=== PATIENT | female | born 1995 | race Caucasian/White ===

== ENCOUNTER 2017-08-30 12:50 | Emergency (ER) | payer OTHER ==
[2017-08-30] MEDS ORDERED: NORMAL SALINE 1000 ML 1,000 ML IV ONE (13:17)
[2017-08-30] MEDS ORDERED: PROMETHAZINE HCL INJ 25 MG/1 ML VIAL IV ONE (13:18)
[2017-08-30] MEDS ORDERED: KETOROLAC TROMETHAMINE INJ/PF 30 MG/1 ML SDV IV ONE (13:18)
--- NOTE | 2017-08-30 13:23 | ER Document Report ---
ED Medical Screen (RME) - General Chief Complaint: Flank Pain Stated Complaint: ABDOMINAL PAIN, VOMITING Time Seen by Provider: 08/30/17 13:17 Mode of Arrival: Ambulatory Information source: Patient TRAVEL OUTSIDE OF THE [place] IN LAST 30 DAYS: No - HPI Patient complains to provider of: R flank pain Onset: This morning - pt with history of kidney stones with R flank pain today - Related Data Allergies/Adverse Reactions: Iodinated Contrast- Oral and IV Dye Allergy (Severe, Verified 08/30/17 13:18) Anaphylaxis ondansetron HCl [From Zofran] Allergy (Intermediate, Verified 08/30/17 13:18) Past Medical History - Social History Chew tobacco use (# tins/day): No Frequency of alcohol use: None Drug Abuse: None - Past Medical History Cardiac Medical History: Denies: Hx Coronary Artery Disease, Hx Heart Attack, Hx Hypertension Pulmonary Medical History: Denies: Hx Asthma, Hx Bronchitis, Hx COPD, Hx Pneumonia Neurological Medical History: Reports: Hx Migraine. Denies: Hx Cerebrovascular Accident, Hx Seizures Endocrine Medical History: Denies: Hx Diabetes Mellitus Type 1, Hx Diabetes Mellitus Type 2 Renal/ Medical History: Reports: Hx Ovarian Cysts. Denies: Hx Peritoneal Dialysis GI Medical History: Reports: Hx Gastroesophageal Reflux Disease, Hx Irritable Bowel Musculoskeltal Medical History: Denies Hx Arthritis Past Surgical History: Reports: Hx Breast Surgery - Breast Reduction, Hx Tonsillectomy - Immunizations Immunizations up to date: Yes Hx Diphtheria, Pertussis, Tetanus Vaccination: Yes Physical Exam - Vital signs Vitals: Temp Pulse Resp BP Pulse Ox 98.4 F 79 18 120/83 97 08/30/17 13:14 08/30/17 13:14 08/30/17 13:14 08/30/17 13:14 08/30/17 13:14 Course - Vital Signs Vital signs: Temp Pulse Resp BP Pulse Ox 98.4 F 79 18 120/83 97 08/30/17 13:14 08/30/17 13:14 08/30/17 13:14 08/30/17 13:14 08/30/17 13:14 Doctor's Discharge - Discharge Referrals: DACIA RIVERA MD [Primary Care Provider] - Follow up as needed
[2017-08-30 13:53] LABS: APPEARANCE,URINE CLEAR; BILIRUBIN,URINE NEGATIVE (NEGATIVE); COLOR,URINE STRAW; GLUCOSE, URINE NEGATIVE (NEGATIVE); KETONES,URINE NEGATIVE (NEGATIVE); LEUKOCYTE ESTERASE,URINE NEGATIVE (NEGATIVE); NITRITE,URINE NEGATIVE (NEGATIVE); PROTEIN,URINE NEGATIVE (NEGATIVE); URINE SPECIFIC GRAVITY 1.006; UROBILINOGEN,URINE NEGATIVE mg/dL (<2.0)
[2017-08-30 14:11] LABS: ABSOLUTE EOSINOPHILS # (AUTO) 0.1 10^3/uL (0.0-0.6); ABSOLUTE LYMPHOCYTES (AUTO) 1.7 10^3/uL (0.5-4.7); ABSOLUTE MONOCYTES (AUTO) 1.2 10^3/uL (0.1-1.4); BASOPHILS % (AUTO) 0.3 % (0-2); EOSINOPHILS % (AUTO) 0.8 % (0-6); HEMOGLOBIN 14.8 g/dL (12.0-15.5); LYMPHOCYTES % (AUTO) 15.3 % (13-45); MEAN CORPUSCULAR HEMOGLOBIN 29.7 pg (27.0-33.4); MEAN CORPUSCULAR HGB CONC 33.6 g/dL (32.0-36.0); MEAN CORPUSCULAR VOLUME 88 fl (80-97); MONOCYTES % (AUTO) 10.6 % (3-13); PLATELET COUNT 188 10^3/uL (150-450); RED BLOOD COUNT 4.99 10^6/uL (3.72-5.28); RED CELL DISTRIBUTION WIDTH 12.7 % (11.5-14.0); TOTAL CELLS COUNTED % (AUTO) 100 %
--- NOTE | 2017-08-30 14:30 | RADIOLOGY REPORT (SQ) ---
EXAM DESCRIPTION: CT LTD RENAL STONE PROTOCOL ON COMPLETED DATE/TIME: 08/30/2017 2:18 pm REASON FOR STUDY: R flank pain COMPARISON: 05/25/2012 TECHNIQUE: CT scan of the abdomen and pelvis performed without intravenous or oral contrast. Images reviewed with lung, soft tissue, and bone windows. Reconstructed coronal and sagittal MPR images revi ewed. All images stored on PACS. All CT scanners at this facility use dose modulation, iterative reconstruction, and/or weight based d osing when appropriate to reduce radiation dose to as low as reasonably achievable (ALARA). [facility]: Dose Right [facility]: CareDose [facility]: Dose Right [facility]: Teradose 4D [facility]: Smart Smarterer RADIATION DOSE: CT Rad equipment meets quality standard of care and radiation dose reduction techniq ues were employed. CTDIvol: 11.6 mGy. DLP: 626 mGy-cm.mGy. LIMITATIONS: None. FINDINGS: LOWER CHEST: No significant findings. No nodules or infiltrates. NON-CONTRASTED LIVER, SPLEEN, ADRENALS: Evaluation limited by lack of IV contrast. No identified sign ificant masses. PANCREAS: No masses. No peripancreatic inflammatory changes. GALLBLADDER: Surgically absent. RIGHT KIDNEY AND URETER: No suspicious masses. Assessment limited by lack of IV contrast. No signif icant calcifications. No hydronephrosis or hydroureter. LEFT KIDNEY AND URETER: No suspicious masses. Assessment limited by lack of IV contrast. No signifi cant calcifications. No hydronephrosis or hydroureter. AORTA AND RETROPERITONEUM: No aneurysm. No retroperitoneal masses or adenopathy. BOWEL AND PERITONEAL CAVITY: No obvious masses or inflammatory changes. No free fluid. APPENDIX: Normal. PELVIS, BLADDER, AND ABDOMINAL WALL:No abnormal masses. No free fluid. Bladder normal. BONES: No significant findings. OTHER: No other significant finding. IMPRESSION: NO SIGNIFICANT OR ACUTE PROCESS IN THE ABDOMEN OR PELVIS. NO URINARY TRACT CALCULI OR H YDRONEPHROSIS. COMMENT: Quality ID # [id number]: Final reports with documentation of one or more dose reduction techniques (e.g., Automated exposure control, adjustment of the mA and/or kV according to patient size, use of iterative reconstruction technique) TECHNICAL DOCUMENTATION: JOB ID: [id number] [employer]- All Rights Reserved Reading location - IP/workstation name: ABA
[2017-08-30 14:36] LABS: ALANINE AMINOTRANSFERASE 47 U/L (9-52); ALKALINE PHOSPHATASE 69 U/L (38-126); ANION GAP 12 (5-19); ASPARTATE AMINO TRANSFERASE 35 U/L (14-36); BILIRUBIN,DIRECT 0.2 mg/dL (0.0-0.4); BILIRUBIN,TOTAL 0.6 mg/dL (0.2-1.3); BLOOD UREA NITROGEN 16 mg/dL (7-20); CALCIUM 10.1 mg/dL (8.4-10.2); CARBON DIOXIDE 24 mmol/L (22-30); CHLORIDE 104 mmol/L (98-107); GLUCOSE 94 mg/dL (75-110); POTASSIUM 4.7 mmol/L (3.6-5.0)
[2017-08-30] MEDS ORDERED: METOCLOPRAMIDE HCL INJ/PF 10 MG/2 ML SDV IV ONE (15:21)
[2017-08-30] MEDS ORDERED: FENTANYL CITRATE INJ/PF 100 MCG/2 ML AMPUL IV ONE (15:38)
--- NOTE | 2017-08-30 15:57 | ER Document Report ---
ED GI/ - General Chief Complaint: Flank Pain Stated Complaint: ABDOMINAL PAIN, VOMITING Time Seen by Provider: 08/30/17 13:17 Mode of Arrival: Ambulatory Information source: Patient Notes: Patient is a 22-year-old female who presents to the ER today for right flank pain radiating around to the right lower abdomen. Patient has a history of kidney stones and states that it feels like exactly the same thing. Patient admits to multiple episodes of nausea and vomiting today. She states that this pain woke her up out of sleep last night around 2 AM. Patient denies any blood in her urine, dysuria, fever, chills. Patient does still have her appendix. TRAVEL OUTSIDE OF THE [place] IN LAST 30 DAYS: No - Related Data Allergies/Adverse Reactions: Iodinated Contrast- Oral and IV Dye Allergy (Severe, Verified 08/30/17 13:18) Anaphylaxis ondansetron HCl [From Zofran] Allergy (Intermediate, Verified 08/30/17 13:18) Past Medical History - General Information source: Patient - Social History Smoking Status: Never Smoker Chew tobacco use (# tins/day): No Frequency of alcohol use: None Drug Abuse: None Family History: Reviewed & Not Pertinent Patient has suicidal ideation: No Patient has homicidal ideation: No - Past Medical History Cardiac Medical History: Denies: Hx Coronary Artery Disease, Hx Heart Attack, Hx Hypertension Pulmonary Medical History: Denies: Hx Asthma, Hx Bronchitis, Hx COPD, Hx Pneumonia Neurological Medical History: Reports: Hx Migraine. Denies: Hx Cerebrovascular Accident, Hx Seizures Endocrine Medical History: Denies: Hx Diabetes Mellitus Type 1, Hx Diabetes Mellitus Type 2 Renal/ Medical History: Reports: Hx Kidney Stones, Hx Ovarian Cysts. Denies: Hx Peritoneal Dialysis GI Medical History: Reports: Hx Gastroesophageal Reflux Disease, Hx Irritable Bowel Musculoskeltal Medical History: Denies Hx Arthritis Past Surgical History: Reports: Hx Breast Surgery - Breast Reduction, Hx Cholecystectomy, Hx Genitourinary Surgery - kidney stones, Hx Tonsillectomy - Immunizations Immunizations up to date: Yes Hx Diphtheria, Pertussis, Tetanus Vaccination: Yes Review of Systems - Review of Systems Constitutional: No symptoms reported EENT: No symptoms reported Cardiovascular: No symptoms reported Respiratory: No symptoms reported Gastrointestinal: No symptoms reported Genitourinary: See HPI Female Genitourinary: No symptoms reported Musculoskeletal: No symptoms reported Skin: No symptoms reported Hematologic/Lymphatic: No symptoms reported Neurological/Psychological: No symptoms reported Physical Exam - Vital signs Vitals: Temp Pulse Resp BP Pulse Ox 98.4 F 79 18 120/83 97 08/30/17 13:14 08/30/17 13:14 08/30/17 13:14 08/30/17 13:14 08/30/17 13:14 - Notes Notes: PHYSICAL EXAMINATION: GENERAL: Uncomfortable, but in no acute distress. HEAD: Atraumatic, normocephalic. EYES: Pupils equal round and reactive to light, extraocular movements intact, sclera anicteric, conjunctiva are normal. NECK: Normal range of motion, supple without lymphadenopathy LUNGS: CTAB and equal. No wheezes rales or rhonchi. HEART: Regular rate and rhythm without murmurs ABDOMEN: Soft, right lower quadrant tenderness. No guarding, no rebound BACK: no vertebral tenderness, normal ROM GI/: Right CVA tenderness EXTREMITIES: Normal range of motion, no pitting edema. No cyanosis. NEUROLOGICAL: Cranial nerves grossly intact. Normal sensory/motor exams. PSYCH: Normal mood, normal affect. SKIN: Warm, Dry, normal turgor, no rashes or lesions noted Course - Re-evaluation Re-evalutation: 08/30/17 18:40 CAT scan reports a normal appendix, no evidence of stone, patient clinically presents like a stone and says that this is the same as her previous stones. I will treat her as if she does have a kidney stone and send her to urology for follow-up. - Vital Signs Vital signs: Temp Pulse Resp BP Pulse Ox 98.4 F 68 16 100/65 97 08/30/17 13:14 08/30/17 17:01 08/30/17 17:01 08/30/17 17:01 08/30/17 17:01 - Laboratory Result Diagrams: 08/30/17 13:50 08/30/17 13:50 Laboratory results interpreted by me: 08/30/17 08/30/17 13:50 13:50 WBC 11.0 H Est GFR (Non-Af Amer) 56 L Discharge - Discharge Clinical Impression: Right flank pain Condition: Stable Disposition: HOME, SELF-CARE Additional Instructions: Return immediately for any new or worsening symptoms. Follow up with primary care provider, call tomorrow to make followup appointment. Follow up with urologist if symptoms do not resolve in 7 days. [facility] [place] [facility] [address] [place], [place] [phone] [place] [facility] [address] [place], [place] [phone] Prescriptions: Oxycodone HCl/Acetaminophen [Percocet 5-325 mg Tablet] 1 - 2 tab PO Q4H PRN #15 tablet PRN Reason: Promethazine HCl [Phenergan 25 mg Tablet] 1 - 2 tab PO Q6H PRN #30 tablet PRN Reason: Tamsulosin HCl [Flomax 0.4 mg Cap.sr] 0.4 mg PO DAILY #7 cap.sr.24h Referrals: DACIA RIVERA MD [Primary Care Provider] - Follow up as needed
[2017-08-30 17:01] VITALS: BP 100/65
== END 2017-08-30 17:04 | disposition home or self-care (01) ==
LOC: ER 12:50
DX: R10.9 Unspecified abdominal pain (principal); R10.813 Right lower quadrant abdominal tenderness; R11.2 Nausea with vomiting, unspecified; Z87.442 Personal history of urinary calculi; Z91.041 Radiographic dye allergy status; Z88.8 Allergy status to other drugs, medicaments and biological substances; Z87.19 Personal history of other diseases of the digestive system; Z87.42 Personal history of other diseases of the female genital tract
CPT/HCPCS: 99284; 96361; 96374; 96375; 36415; 85025; 81025; 80053; 81001; 76380; J3010; J1885; J2765; J2550; J7030

== ENCOUNTER 2018-12-29 03:06 | Emergency (ER) | payer OTHER ==
[2018-12-29] MEDS ORDERED: DIPHENHYDRAMINE HCL 50 MG/ML VIAL IV ONE ×2 (03:40→05:19)
[2018-12-29] MEDS ORDERED: METOCLOPRAMIDE HCL INJ/PF 10 MG/2 ML SDV IV ONE (03:40)
[2018-12-29] MEDS ORDERED: NORMAL SALINE 1000 ML 1,000 ML IV ONE ×2 (03:40→04:47)
--- NOTE | 2018-12-29 03:42 | ER Document Report ---
ED GI/ - General Chief Complaint: Abdominal Pain Stated Complaint: ABDOMINAL PAIN Time Seen by Provider: 12/29/18 03:34 Primary Care Provider: DACIA RIVERA MD [ACTIVE STAFF] - Follow up as needed Notes: Patient is a 23-year-old female that comes to the emergency department for chief complaint of vomiting and chills that started this evening. She states she has vomited multiple times. She had a loose stool earlier but denies diarrhea as a symptom. She denies congestion, cough. She has been exposed to a family member who also vomited. Pain is in the upper abdomen, worse on the left side. She denies lower abdominal pain, vaginal bleeding or discharge. Past medical history includes cholecystectomy, kidney stones. She denies any prescribed any medications. LMP within the past month. TRAVEL OUTSIDE OF THE [place] IN LAST 30 DAYS: No - Related Data Allergies/Adverse Reactions: Iodinated Contrast- Oral and IV Dye Allergy (Severe, Verified 08/30/17 13:18) Anaphylaxis ondansetron HCl [From Zofran] Allergy (Intermediate, Verified 08/30/17 13:18) Past Medical History - General Information source: Patient - Social History Smoking Status: Never Smoker Frequency of alcohol use: None Drug Abuse: None Lives with: Family Family History: Reviewed & Not Pertinent - Past Medical History Cardiac Medical History: Denies: Hx Coronary Artery Disease, Hx Heart Attack, Hx Hypertension Pulmonary Medical History: Denies: Hx Asthma, Hx Bronchitis, Hx COPD, Hx Pneumonia Neurological Medical History: Reports: Hx Migraine. Denies: Hx Cerebrovascular Accident, Hx Seizures Endocrine Medical History: Denies: Hx Diabetes Mellitus Type 1, Hx Diabetes Mellitus Type 2 Renal/ Medical History: Reports: Hx Kidney Stones, Hx Ovarian Cysts. Denies: Hx Peritoneal Dialysis GI Medical History: Reports: Hx Gastroesophageal Reflux Disease, Hx Irritable Bowel Musculoskeletal Medical History: Denies Hx Arthritis Past Surgical History: Reports: Hx Breast Surgery - Breast Reduction, Hx Cholecystectomy, Hx Genitourinary Surgery - kidney stones, Hx Tonsillectomy - Immunizations Immunizations up to date: Yes Hx Diphtheria, Pertussis, Tetanus Vaccination: Yes Review of Systems - Review of Systems Constitutional: No symptoms reported EENT: No symptoms reported Cardiovascular: No symptoms reported Respiratory: No symptoms reported Gastrointestinal: See HPI Genitourinary: No symptoms reported Female Genitourinary: No symptoms reported Musculoskeletal: No symptoms reported Skin: No symptoms reported Hematologic/Lymphatic: No symptoms reported Neurological/Psychological: No symptoms reported Physical Exam - Vital signs Vitals: Temp Pulse Resp BP Pulse Ox 98.8 F 94 12 121/72 98 12/29/18 03:10 12/29/18 03:10 12/29/18 03:10 12/29/18 03:10 12/29/18 03:10 - Notes Notes: GENERAL: Alert, interacts well. No acute distress. HEAD: Normocephalic, atraumatic. EYES: Pupils equal, round, and reactive to light. Extraocular movements intact. ENT: Oral mucosa very dry, tongue midline. Oropharynx unremarkable. Airway pat ent. NECK: Full range of motion. Supple. Trachea midline. LUNGS: Clear to auscultation bilaterally, no wheezes, rales, or rhonchi. No respiratory distress. HEART: Regular rate and rhythm. No murmur ABDOMEN: Minimal diffuse generalized tenderness, slightly more tenderness in the epigastric and left upper quadrant but still no guarding, rebound, rigidity. GENITOURINARY: Deferred EXTREMITIES: Moves all 4 extremities spontaneously. No edema, normal radial and dorsalis pedis pulses bilaterally. No cyanosis. BACK: no cervical, thoracic, lumbar midline tenderness. No saddle anesthesia, normal distal neurovascular exam. Moves all extremities in full range of motion. NEUROLOGICAL: Alert and oriented x3. Normal speech. Cranial nerves II through XII grossly intact. PSYCH: Normal affect, normal mood. SKIN: Warm, dry, normal turgor. No rashes or lesions noted. Course - Re-evaluation Re-evalutation: Patient appears dehydrated but is otherwise well-appearing. Mild generalized abdominal tenderness without guarding, slightly more tenderness in the left upper quadrant and epigastric areas. CBC shows mild leukocytosis, chemistry u nremarkable, lipase not elevated. Patient given Reglan, small amount of Benadryl, IV fluids. On reevaluation she feels much improved reportedly. She has not vomited. She was given p.o. Carafate, Pepcid, and fluids. She tolerated this very well. Symptoms resolved. Patient her exposure, symptoms, benign examination, I suspect she has a viral illness. Very low suspicion of acute abdomen based on her presentation. Discussed treatment, follow-up, expectations, return precautions. Patient s tates satisfaction and agreement. Stable at time of discharge. - Vital Signs Vital signs: Temp Pulse Resp BP Pulse Ox 99.1 F 107 H 16 116/65 100 12/29/18 06:42 12/29/18 06:42 12/29/18 06:42 12/29/18 06:42 12/29/18 06:42 - Laboratory Result Diagrams: 12/29/18 04:04 12/29/18 04:04 Laboratory results interpreted by me: 12/29/18 12/29/18 12/29/18 03:49 04:04 04:04 WBC 12.0 H Seg Neutrophils % 88.2 H Lymphocytes % 5.4 L Absolute Neutrophils 10.6 H AST 44 H Urine Protein 30 H Urine Urobilinogen 2.0 H Discharge - Discharge Clinical Impression: Dehydration Vomiting Qualifiers: Vomiting type: unspecified Vomiting Intractability: non-intractable Nausea presence: with nausea Qualified Code(s): R11.2 - Nausea with vomiting, unspecified Condition: Stable Disposition: HOME, SELF-CARE Additional Instructions: Your work-up, symptoms, evaluations are most consistent with a viral illness. Continue rehydration at home, start with clear fluids, progress to bland food. Take Reglan as prescribed, take Benadryl with this, take the famotidine. Follow-up with primary care. Return if you worsen including uncontrolled vomiting, severe worsening abdominal pain, developing fever, or any other concerning symptoms. Prescriptions: Famotidine [Pepcid 20 mg Tablet] 20 mg PO BID #14 tablet Metoclopramide HCl [Reglan] 5 mg PO ASDIR PRN #30 tablet PRN Reason: Forms: Return to Work Referrals: DACIA RIVERA MD [ACTIVE STAFF] - Follow up as needed
[2018-12-29 04:25] LABS: ABSOLUTE EOSINOPHILS # (AUTO) 0.1 10^3/uL (0.0-0.6); ABSOLUTE LYMPHOCYTES (AUTO) 0.7 10^3/uL (0.5-4.7); ABSOLUTE MONOCYTES (AUTO) 0.6 10^3/uL (0.1-1.4); ABSOLUTE NEUT (AUTO) 10.6 10^3/uL (1.7-8.2); BASOPHILS % (AUTO) 0.2 % (0-2); EOSINOPHILS % (AUTO) 0.9 % (0-6); HEMATOCRIT 42.5 % (36.0-47.0); HEMOGLOBIN 14.6 g/dL (12.0-15.5); LYMPHOCYTES % (AUTO) 5.4 % (13-45); MEAN CORPUSCULAR HEMOGLOBIN 29.5 pg (27.0-33.4); MEAN CORPUSCULAR HGB CONC 34.3 g/dL (32.0-36.0); MEAN CORPUSCULAR VOLUME 86 fl (80-97); MONOCYTES % (AUTO) 5.3 % (3-13); PLATELET COUNT 176 10^3/uL (150-450); RED BLOOD COUNT 4.94 10^6/uL (3.72-5.28); RED CELL DISTRIBUTION WIDTH 12.3 % (11.5-14.0); SEGMENTED NEUTROPHILS % (AUTO) 88.2 % (42-78); TOTAL CELLS COUNTED % (AUTO) 100 %
[2018-12-29 04:31] LABS: APPEARANCE,URINE HAZY; BILIRUBIN,URINE NEGATIVE (NEGATIVE); COLOR,URINE YELLOW; GLUCOSE, URINE NEGATIVE (NEGATIVE); KETONES,URINE NEGATIVE (NEGATIVE); LEUKOCYTE ESTERASE,URINE NEGATIVE (NEGATIVE); NITRITE,URINE NEGATIVE (NEGATIVE); PROTEIN,URINE 30 mg/dL (NEGATIVE)
[2018-12-29 04:32] LABS: URINE SPECIFIC GRAVITY 1.025
[2018-12-29 04:50] LABS: ALANINE AMINOTRANSFERASE 41 U/L (9-52); ALBUMIN 4.7 g/dL (3.5-5.0); ALKALINE PHOSPHATASE 70 U/L (38-126); ANION GAP 10 (5-19); ASPARTATE AMINO TRANSFERASE 44 U/L (14-36); BILIRUBIN,DIRECT 0.2 mg/dL (0.0-0.4); BILIRUBIN,TOTAL 0.6 mg/dL (0.2-1.3); BLOOD UREA NITROGEN 14 mg/dL (7-20); CALCIUM 9.5 mg/dL (8.4-10.2); CARBON DIOXIDE 30 mmol/L (22-30); CHLORIDE 100 mmol/L (98-107); GLUCOSE 104 mg/dL (75-110); LIPASE 165.6 U/L (23-300); POTASSIUM 4.2 mmol/L (3.6-5.0); SODIUM 140.1 mmol/L (137-145); TOTAL PROTEIN 7.6 g/dL (6.3-8.2)
[2018-12-29] MEDS ORDERED: FAMOTIDINE 20 MG TABLET PO ONE (05:18)
[2018-12-29] MEDS ORDERED: SUCRALFATE 1 GM TABLET PO ONE (05:19)
[2018-12-29 06:47] VITALS: BP 116/65
== END 2018-12-29 06:48 | disposition home or self-care (01) ==
LOC: ER 03:06
DX: E86.0 Dehydration (principal); R11.2 Nausea with vomiting, unspecified; R10.9 Unspecified abdominal pain; R19.7 Diarrhea, unspecified; R10.12 Left upper quadrant pain
CPT/HCPCS: 96376; 99284; 96361; 96374; 96375; 36415; 83690; 84703; 85025; 80053; 81001; J1200; J2765; J7030

== ENCOUNTER → 2019-05-05 | Outpatient (CLI) | payer OTHER ==
[2019-05-05 12:34] LABS: ALBUMIN 4.6 g/dL (3.5-5.0); ALKALINE PHOSPHATASE 65 U/L (38-126); ANION GAP 9 (5-19); ASPARTATE AMINO TRANSFERASE 24 U/L (14-36); BILIRUBIN,DIRECT 0.2 mg/dL (0.0-0.4); BILIRUBIN,TOTAL 0.6 mg/dL (0.2-1.3); BLOOD UREA NITROGEN 11 mg/dL (7-20); CALCIUM 9.9 mg/dL (8.4-10.2); CARBON DIOXIDE 26 mmol/L (22-30); CHLORIDE 106 mmol/L (98-107); CHOLESTEROL 228.89 mg/dL (0-200); GLUCOSE 86 mg/dL (75-110); POTASSIUM 4.4 mmol/L (3.6-5.0); TOTAL PROTEIN 7.6 g/dL (6.3-8.2); TRIGLYCERIDES 88 mg/dL (<150)
[2019-05-05 12:45] LABS: DIRECT LDL 156 mg/dL (<100)
== END ==
LOC: OD 11:09
PROVIDERS: ATTEND Family Medicine
DX: E55.9 Vitamin D deficiency, unspecified (principal); E66.9 Obesity, unspecified; E54 Ascorbic acid deficiency; E28.2 Polycystic ovarian syndrome
CPT/HCPCS: 36415; 80053; 80061; 82180; 82306; 84443; 84703

== ENCOUNTER → 2020-06-06 | Outpatient (CLI) | payer MEDICAID ==
[2020-06-06 21:57] LABS: APPEARANCE,URINE SLIGHTLY-CLOUDY; BILIRUBIN,URINE NEGATIVE (NEGATIVE); COLOR,URINE YELLOW; GLUCOSE, URINE NEGATIVE (NEGATIVE); KETONES,URINE TRACE mg/dL (NEGATIVE); LEUKOCYTE ESTERASE,URINE TRACE (NEGATIVE); NITRITE,URINE NEGATIVE (NEGATIVE); PROTEIN,URINE NEGATIVE (NEGATIVE); URINE SPECIFIC GRAVITY 1.018; UROBILINOGEN,URINE NEGATIVE mg/dL (<2.0)
[2020-06-06 22:14] LABS: URINE AMPHETAMINES SCREEN NEGATIVE; URINE BARBITURATES SCREEN NEGATIVE; URINE BENZODIAZEPINES SCREEN NEGATIVE; URINE COCAINE SCREEN NEGATIVE; URINE MARIJUANA (THC) SCREEN NEGATIVE; URINE METHADONE SCREEN NEGATIVE; URINE PHENCYCLIDINE SCREEN NEGATIVE
== END ==
LOC: LC 19:53
PROVIDERS: ATTEND Obstetrics & Gynecology
DX: Z34.93 Encounter for supervision of normal pregnancy, unspecified, third trimester (principal); Z3A.39 39 weeks gestation of pregnancy
CPT/HCPCS: 80307; 81005

== ENCOUNTER 2020-06-07 02:06 | Inpatient (IN) | payer MEDICAID ==
[2020-06-02 11:01] LABS: ABSOLUTE EOSINOPHILS # (AUTO) 0.2 10^3/uL (0.0-0.6); ABSOLUTE MONOCYTES (AUTO) 0.6 10^3/uL (0.1-1.4); ABSOLUTE NEUT (AUTO) 6.1 10^3/uL (1.7-8.2); BASOPHILS % (AUTO) 0.2 % (0-2); HEMATOCRIT 32.9 % (36.0-47.0); LYMPHOCYTES % (AUTO) 22.8 % (13-45); MEAN CORPUSCULAR HEMOGLOBIN 26.6 pg (27.0-33.4); MEAN CORPUSCULAR HGB CONC 33.4 g/dL (32.0-36.0); MEAN CORPUSCULAR VOLUME 80 fl (80-97); PLATELET COUNT 180 10^3/uL (150-450); RED BLOOD COUNT 4.13 10^6/uL (3.72-5.28); RED CELL DISTRIBUTION WIDTH 13.6 % (11.5-14.0); TOTAL CELLS COUNTED % (AUTO) 100 %
[2020-06-02 11:13] LABS: APPEARANCE,URINE CLOUDY; BILIRUBIN,URINE NEGATIVE (NEGATIVE); CALCIUM OXALATE CRYSTALS,URINE FEW /HPF; COLOR,URINE YELLOW; GLUCOSE, URINE NEGATIVE (NEGATIVE); KETONES,URINE NEGATIVE (NEGATIVE); LEUKOCYTE ESTERASE,URINE LARGE (NEGATIVE); NITRITE,URINE NEGATIVE (NEGATIVE); PROTEIN,URINE NEGATIVE (NEGATIVE); URINE SPECIFIC GRAVITY 1.012; UROBILINOGEN,URINE NEGATIVE mg/dL (<2.0)
[2020-06-02 11:36] LABS: URINE AMPHETAMINES SCREEN NEGATIVE; URINE BARBITURATES SCREEN NEGATIVE; URINE BENZODIAZEPINES SCREEN NEGATIVE; URINE COCAINE SCREEN NEGATIVE; URINE MARIJUANA (THC) SCREEN NEGATIVE; URINE METHADONE SCREEN NEGATIVE; URINE PHENCYCLIDINE SCREEN NEGATIVE
[2020-06-07] MEDS ORDERED: RINGERS SOLUTION,LACTATED 1,000 ML IV PRN ×2 (05:00→09:33)
[2020-06-07] MEDS ORDERED: LACTATED RINGERS 1000 ML IV PRN (05:00)
[2020-06-07] MEDS ORDERED: CEFAZOLIN 2 GM/D5W RTU 2 GM/50 ML RTUPB IV PRN (05:00)
--- NOTE | 2020-06-07 05:32 | Non Stress Test Report ---
Non Stress Test Datetime Report Generated by CPN: 06/07/2020 05:31 INDICATION Indication for Study (NST) Other: Primary C/S; contractions VITAL SIGNS Temperature - NST: 98.6 RESP - NST: 17 NBPSYS NST: 126 NBPDIA NST: 79 MONITORING Monitor Explained: Monitor Explained; Test Explained; Patient Verbalized Understanding Time on Monitor: 06/06/2020 22:58 Time off Monitor: 06/07/2020 01:00 NST Duration: 122 NST INTERVENTIONS NST Interventions: IV Fluids; Reposition Patient Physician Notified NST: Dr. Pascual BABY A: [id number] BABY A Movement : Present Contraction Frequency : 3-4 FHR Baseline : 115 Accelerations : 15X15 Decelerations : None Variability : Moderate 6-25bpm NST Review: Meets Criteria for Reactive NST NST Review and Verified By : Keren Uriarte RN NST Results: Reactive NST REPORT Report Trigger: Send Report
[2020-06-07] MEDS ORDERED: OXYTOCIN 10 UNIT/ML VIAL ONE (07:24)
[2020-06-07] MEDS ORDERED: KETOROLAC TROMETHAMINE INJ/PF 30 MG/1 ML SDV ONE (07:25)
[2020-06-07] MEDS ORDERED: PHENYLEPHRINE HCL INJ/PF 10 MG/1 ML SDV ONE (07:25)
[2020-06-07] MEDS ORDERED: MIDAZOLAM 2 MG/2 ML INJ ONE (07:25)
[2020-06-07] MEDS ORDERED: OXYTOCIN/0.9 % SODIUM CHLORIDE 30 UNIT/500 ML RTUINJ ONE (07:25)
[2020-06-07] MEDS ORDERED: FENTANYL CITRATE INJ/PF 100 MCG/2 ML AMPUL ONE ×2 (07:25→10:13)
[2020-06-07] MEDS ORDERED: DEXAMETHASONE SOD PHOSPHATE INJ 4 MG/1 ML VIAL ONE (07:25)
[2020-06-07] MEDS ORDERED: EPHEDRINE SULFATE INJ 50 MG/1 ML AMPULE ONE (07:25)
[2020-06-07] MEDS ORDERED: ONDANSETRON HCL INJ/PF 4 MG/2 ML SDV ONE (07:26)
[2020-06-07] MEDS ORDERED: ACETAMINOPHEN 1,000 MG/100 ML RTUPB IV ONE (07:26)
[2020-06-07] MEDS ORDERED: MEPERIDINE HCL/PF INJ 25 MG/1 ML DISP.SYRIN IV PRN (08:42)
[2020-06-07] MEDS ORDERED: OXYCODONE-ACETAMINOPHEN 5-325 MG TABLET PO PRN ×2 (08:42)
[2020-06-07] MEDS ORDERED: FENTANYL CITRATE INJ/PF 100 MCG/2 ML AMPUL IV PRN ×3 (08:42)
[2020-06-07] MEDS ORDERED: DIPHENHYDRAMINE HCL 50 MG/ML VIAL IV PRN (08:42)
[2020-06-07] MEDS ORDERED: PROMETHAZINE HCL INJ 25 MG/1 ML VIAL IV PRN ×3 (08:42→09:33)
[2020-06-07] MEDS ORDERED: NALBUPHINE HCL INJ 10 MG/1 ML AMPULE ONE (09:21)
[2020-06-07] MEDS ORDERED: SIMETHICONE 80 MG TAB.CHEW PO PRN (09:33)
[2020-06-07] MEDS ORDERED: OXYTOCIN/0.9 % SODIUM CHLORIDE 30 UNIT/500 ML RTUINJ IV PRN (09:33)
[2020-06-07] MEDS ORDERED: ACETAMINOPHEN 325 MG TABLET PO PRN (09:33)
[2020-06-07] MEDS ORDERED: DIPH/PERTUSS(ACELL)/TETANUS VAC/PF 0.5 ML SYR (>=10YO) IM PRN (09:33)
[2020-06-07] MEDS ORDERED: HYDROMORPHONE HCL INJ/PF 2 MG/ML AMPULE IV PRN (09:33)
[2020-06-07] MEDS ORDERED: MEASLES,MUMPS&RUBELLA VACC/PF 0.5 ML VIAL SUBCUT PRN (09:33)
[2020-06-07] MEDS ORDERED: ACETAMINOPHEN 1,000 MG/100 ML RTUPB IV PRN (09:33)
--- NOTE | 2020-06-07 09:33 | Operative Report ---
Operative Report DATE OF SURGERY: 06/07/20 PREOPERATIVE DIAGNOSIS: Intrauterine at 40 wks EGA. Breech presentat ion POSTOPERATIVE DIAGNOSIS: Same as above OPERATION: Primary section SURGEON: JAYDE SUMMERS ANESTHESIA: Spinal TISSUE REMOVED OR ALTERED: Placenta COMPLICATIONS: none ESTIMATED BLOOD LOSS: 650cc INTRAOPERATIVE FINDINGS: Normal-appearing uterus bilateral fallopian tubes and ovaries. Amniotic fluid clear. Anterior placenta. Viable male in footling breech presentation. PROCEDURE: IV fluids: per anesthesia record Urinary output: 300 cc clear yellow urine Findings: Normal-appearing uterus, bilateral ovaries and fallopian tubes were negative. Placenta grossly normal. Position: To recovery room in stable condition Description of procedure: The patient was taken to the operating room and spinal anesthesia was administered and found to be adequate. She was then placed on the OR table in the supine position with a slight leftward tilt. Patient was prepped and draped in usual sterile fashion. Ancef 2 gms was given IV prior to the procedure for infection prophylaxis. Timeout was taken. A Pfannenstiel skin incision was then made approximately 3 cm above the pubic symphysis and carried down to level the rectus fascia. The rectus fascia was then nicked in the midline with a scalpel and the fascial incision was extended laterally with use of curved Coronado scissors. The rectus fascia was then grasped with 2 Kocker clamps elevated and the underlying rectus muscle was dissected off both bluntly and sharply. Any bleeding controlled with cautery. The rectus muscles were then split in the midline and the peritoneum was entered. The peritoneal incision was then extended by manually stretching the peritoneum. The bladder blade was positioned. Using pick ups and metzenbaum scissors a bladder flap was created and bladder digitly moved out of harms way. The bladder was then noted to be out of harm's way. A scalpel was then used in the lower uterine for the hysterotomy, slowly until amniotomy was obtained a moderate amount of fluid was noted. The uterine incision was then manually stretched. The infant was noted to be in footling breech presentation. The feet were grasped and legs delivered. THe hips were brought to the hysterotomy incision and delivered. Back delivered to the level of the scapula. THe chest was turned side to side allowing delivery of each arm. The baby was elevated toward maternal head and the head then delivered with some difficulty and blue towel with pressure from school bus driver/teacher assistant on the fundus were used. The cord was cut clamped and the was handed off to the nurse awaiting. The placenta was manually delivered. Using a lap gauze the uterus was cleared of all clots and debris. The uterus was then exteriorized and a bladder blade was repositioned. The uterine incision was then closed with 0 Chromic suture in a running locked fashion. A second layer of the same suture was used in a running locked imbricated fashion. The uterine incision was inspected and noted to be hemostatic. The posterior aspect of the uterus was then inspected and anatomy was seen as above. Warm saline was used to remove any clot or debris. The uterus remained firm and was returned to its normal anatomic position within the abdominal cavity. Warm saline irrigation was used to clear all clots and debris from the abdomen. The uterine incision was inspected once more and noted to remain hemostatic. The bladder blade was removed and the peritoneum was closed with 2-0 chromic in a running fashion. The rectus muscles were then reapproximated and the rectus fascia was closed with a #0 looped PDS in a running fashion. The subcutaneous tissue was then inspected and any bleeding was controlled with Bovie electrocautery. The subcutaneous tissue was then closed with 2-0 Plain Gut suture in a running fashion. The skin was then closed with 3- 0 Monocryl in a running subcuticular fashion. The skin incision was then clean dried and Dermabond was applied over the skin incision. All instrument sponge and needle counts were correct x3 for the procedure the patient tolerated the procedure well. She will proceed to recovery room in stable condition
[2020-06-07] MEDS ORDERED: PROMETHAZINE HCL INJ 25 MG/1 ML VIAL ONE (10:12)
[2020-06-07] MEDS: DOCUSATE SODIUM 100 MG CAPSULE PO SCH ×2 (14:01→18:53)
[2020-06-07] MEDS: KETOROLAC TROMETHAMINE INJ/PF 30 MG/1 ML SDV IV SCH ×2 (14:42→22:44)
[2020-06-07] MEDS: PRENATAL VITAMIN W DHA CAPSULE PO SCH (14:56)
[2020-06-07] MEDS: OXYCODONE-ACETAMINOPHEN 5-325 MG TABLET PO PRN (20:13)
[2020-06-08] MEDS: KETOROLAC TROMETHAMINE INJ/PF 30 MG/1 ML SDV IV SCH (05:18)
[2020-06-08 07:20] LABS: HEMATOCRIT 27.9 % (36.0-47.0); HEMOGLOBIN 9.4 g/dL (12.0-15.5); MEAN CORPUSCULAR HEMOGLOBIN 27.1 pg (27.0-33.4); MEAN CORPUSCULAR HGB CONC 33.7 g/dL (32.0-36.0); MEAN CORPUSCULAR VOLUME 81 fl (80-97); PLATELET COUNT 170 10^3/uL (150-450); RED BLOOD COUNT 3.46 10^6/uL (3.72-5.28); RED CELL DISTRIBUTION WIDTH 13.9 % (11.5-14.0); WHITE BLOOD COUNT 12.2 10^3/uL (4.0-10.5)
[2020-06-08] MEDS: DOCUSATE SODIUM 100 MG CAPSULE PO SCH ×2 (11:17→18:31)
[2020-06-08] MEDS: OXYCODONE-ACETAMINOPHEN 5-325 MG TABLET PO PRN ×2 (11:17→16:50)
[2020-06-08] MEDS: PRENATAL VITAMIN W DHA CAPSULE PO SCH (11:17)
--- NOTE | 2020-06-08 12:50 | PDOC PROGRESS REPORT ---
Subjective-OB Progress Note for:: 06/08/20 Subjective: Pt doing well, no concerns. She is ambulatory, reports +flatus, bleeding normal and is bonding w baby. Physical Exam (OB) Vital Signs: Temp Pulse Resp BP Pulse Ox 97.9 F 85 16 113/63 99 06/08/20 11:17 06/08/20 11:17 06/08/20 11:17 06/08/20 11:17 06/08/20 11:17 Intake & Output 06/07/20 06/08/20 06/09/20 06:59 06:59 06:59 Intake Total 1000 1000 Output Total 1601 Balance 1000 -601 - PIH/Pre-Eclampsia DTR's: 2 + Clonus: Negative Headache: Absent Epigastric Pain: No Visual Changes: No - Dressing Removed: Yes Incision: Open, Well Approximated Closure Type: Surgical Glue - Maternal Morbidity 59. Maternal Morbidity (serious complications experinced by the mother associated with labor and delivery: None of the above - Lochia Lochia Amount: Small 10-25 ml Lochia Color: Rubra/Red - Abdomen Description: Tender, Soft, Round Hernia Present: No Fundal Description: Firm, Midline Fundal Height: u/u - u/2 Objective-Diagnostic Laboratory: 06/08/20 06:59 06/08/20 06:59 WBC 12.2 H RBC 3.46 L Hgb 9.4 L Hct 27.9 L MCV 81 MCH 27.1 MCHC 33.7 RDW 13.9 Plt Count 170 Assessment and Plan(PN) - Assessment and Plan (1) Breech presentation delivered Is this a current diagnosis for this admission?: Yes (2) delivery delivered Is this a current diagnosis for this admission?: Yes - Time Spent with Patient Time with patient: Less than 15 minutes Medications reviewed and adjusted accordingly: Yes - Disposition Anticipated Discharge Disposition: Home, Self Care Anticipated Discharge Timeframe: within 24 hours
[2020-06-08] MEDS: IBUPROFEN 800 MG TABLET PO SCH ×2 (14:40→21:41)
[2020-06-09] MEDS: IBUPROFEN 800 MG TABLET PO SCH (05:28)
[2020-06-09] MEDS: OXYCODONE-ACETAMINOPHEN 5-325 MG TABLET PO PRN (09:59)
[2020-06-09] MEDS: PRENATAL VITAMIN W DHA CAPSULE PO SCH (10:00)
[2020-06-09] MEDS: DOCUSATE SODIUM 100 MG CAPSULE PO SCH (10:00)
[2020-06-09 12:40] VITALS: BP 108/65
--- NOTE | 2020-06-09 12:56 | PDOC DISCHARGE SUMMARY ---
Impression - Admit/DC Date/PCP Admission Date/Primary Care Provider: 06/07/20 02:06 OSEI WAGNER MD Discharge Date: 06/09/20 - Discharge Diagnosis (1) Breech presentation delivered Is this a current diagnosis for this admission?: Yes (2) delivery delivered Is this a current diagnosis for this admission?: Yes - Additional Information Discharge Diet: Regular Discharge Activity: Balance Activity w/Rest, Pelvic Rest Referrals: OSEI WAGNER MD [Primary Care Provider] - Prescriptions: Ibuprofen [Motrin 800 mg Tablet] 800 mg PO Q8 #60 tablet Oxycodone HCl/Acetaminophen [Percocet 5-325 mg Tablet] 1 tab PO Q4HP PRN #20 tablet PRN Reason: Home Medications: Vits96/Iron Fum/Folic [ Tablet] 1 tab PO DAILY 06/02/20 Ibuprofen [Motrin 800 mg Tablet] 800 mg PO Q8 #60 tablet 06/09/20 Oxycodone HCl/Acetaminophen [Percocet 5-325 mg Tablet] 1 tab PO Q4HP PRN #20 tablet 06/09/20 Hospital Course 59. Maternal Morbidity (serious complications experinced by the mother as sociated with labor and delivery: None of the above Results Laboratory Results: WBC 12.2 10^3/uL (4.0-10.5) H 06/08/20 06:59 RBC 3.46 10^6/uL (3.72-5.28) L 06/08/20 06:59 Hgb 9.4 g/dL (12.0-15.5) L 06/08/20 06:59 Hct 27.9 % (36.0-47.0) L 06/08/20 06:59 MCV 81 fl (80-97) 06/08/20 06:59 MCH 27.1 pg (27.0-33.4) 06/08/20 06:59 MCHC 33.7 g/dL (32.0-36.0) 06/08/20 06:59 RDW 13.9 % (11.5-14.0) 06/08/20 06:59 Plt Count 170 10^3/uL (150-450) 06/08/20 06:59 Lymph % (Auto) 22.8 % (13-45) 06/02/20 09:57 [place] % (Auto) 7.0 % (3-13) 06/02/20 09:57 Eos % (Auto) 2.0 % (0-6) 06/02/20 09:57 Baso % (Auto) 0.2 % (0-2) 06/02/20 09:57 Absolute Neuts (auto) 6.1 10^3/uL (1.7-8.2) 06/02/20 09:57 Absolute Lymphs (auto) 2.0 10^3/uL (0.5-4.7) 06/02/20 09:57 Absolute Monos (auto) 0.6 10^3/uL (0.1-1.4) 06/02/20 09:57 Absolute Eos (auto) 0.2 10^3/uL (0.0-0.6) 06/02/20 09:57 Absolute Basos (auto) 0.0 10^3/uL (0.0-0.2) 06/02/20 09:57 Seg Neutrophils % 68.0 % (42-78) 06/02/20 09:57 Urine Color YELLOW 06/02/20 09:50 Urine Appearance CLOUDY 06/02/20 09:50 Urine pH 8.0 (5.0-9.0) 06/02/20 09:50 Ur Specific [place] 1.012 06/02/20 09:50 Urine Protein NEGATIVE mg/dL (NEGATIVE) 06/02/20 09:50 Urine Glucose (UA) NEGATIVE mg/dL (NEGATIVE) 06/02/20 09:50 Urine Ketones NEGATIVE mg/dL (NEGATIVE) 06/02/20 09:50 Urine Blood NEGATIVE (NEGATIVE) 06/02/20 09:50 Urine Nitrite NEGATIVE (NEGATIVE) 06/02/20 09:50 Urine Bilirubin NEGATIVE (NEGATIVE) 06/02/20 09:50 Urine Urobilinogen NEGATIVE mg/dL (<2.0) 06/02/20 09:50 Ur Leukocyte Esterase LARGE (NEGATIVE) H 06/02/20 09:50 Urine WBC (Auto) 26 /HPF 06/02/20 09:50 Urine RBC (Auto) 1 /HPF 06/02/20 09:50 Squamous Epi Cells Auto 65 /HPF 06/02/20 09:50 Calcium Oxalate Cr Auto FEW /HPF 06/02/20 09:50 Urine Mucus (Auto) RARE /LPF 06/02/20 09:50 Urine Ascorbic Acid NEGATIVE (NEGATIVE) 06/02/20 09:50 Urine Opiates Screen NEGATIVE 06/02/20 09:50 Urine Methadone Screen NEGATIVE 06/02/20 09:50 Ur Barbiturates Screen NEGATIVE 06/02/20 09:50 Ur Phencyclidine Scrn NEGATIVE 06/02/20 09:50 Ur Amphetamines Screen NEGATIVE 06/02/20 09:50 U Benzodiazepines Scrn NEGATIVE 06/02/20 09:50 Urine Cocaine Screen NEGATIVE 06/02/20 09:50 U Marijuana (THC) Screen NEGATIVE 06/02/20 09:50 COVID-19 Source See comment 06/02/20 09:53 COVID-19 ([facility]) Not Detected (Not Detect) 06/02/20 09:53 Blood Type B POSITIVE 06/07/20 02:55 Antibody Screen NEGATIVE 06/07/20 02:55 Plan Plan of Treatment: follow up in 1 week for incision check
--- NOTE | 2020-06-13 09:33 | Delivery Summary ---
Del Sum A-C Datetime Report Generated by CPN: 06/13/2020 09:32 DELIVERY PERSONNEL DELIVERY PERSONNEL: [id number] Delivery Doctor:: Ailin Cannon MD Delivery Doctor:: Ailin Cannon MD TECHNICIAN'S HELPER:: Amadou Tripp, TECHNICIAN'S HELPER TECHNICIAN'S HELPER:: Amadou Tripp, TECHNICIAN'S HELPER Record Searcher:: Nancy Zee RN Record Searcher:: Nancy Zee RN Neonatal Nurse Practitioner:: ADRIAN Lam Nursery Nurse:: Tana Osborn RN Phonograph Mechanic/DIRECTOR OF COLLECTIONS AND ARCHIVES: ST Rafael Phonograph Mechanic/DIRECTOR OF COLLECTIONS AND ARCHIVES: Stephanie Cortez BALANCE ENGINEER Phonograph Mechanic/DIRECTOR OF COLLECTIONS AND ARCHIVES: Stephanie Cortez CST Phonograph Mechanic/DIRECTOR OF COLLECTIONS AND ARCHIVES: ST Rafael MATERNAL INFORMATION Delivery Anesthesia: Spinal Medications After Delivery: Pitocin Bolus-Please Comment; Pitocin 30 Units in 500ml NS/D5W; Pitocin Drip 20 Units/1000ml NSS Delivery QBL: 410 Maternal Complications: None Provider Comments: see operative report for details LABOR SUMMARY EDC: 06/13/2020 00:00 No. Babies in Womb: 1 Attempted: No Labor Anesthesia: None LABOR INFORMATION Reason for Induction: Not Applicable Oxytocin: N/A Group B Beta Strep: negative Antibiotics # of Doses: 1 Antibiotics Time of Last Dose: 06/07/2020 08:16 Name of Antibiotic Given: Ancef 2g Steroids Given: None Reason Steroids Not Administered: Not Applicable MEMBRANES Membranes Rupture Method: Artificial Rupture of Membranes: 06/07/2020 08:36 Length of Rupture (hr): 0.03 Amniotic Fluid Color: Clear Amniotic Fluid Amount: Moderate Amniotic Fluid Odor: Normal STAGES OF LABOR Stage 3 hr: 0 Stage 3 min: 2 VAGINAL DELIVERY Episiotomy: None Laceration #1: None Sponge Count Correct: N/A Sharps Count Correct: N/A CSECTION DELIVERY Primary Indication: Breech Presentation CSection Urgency: Scheduled CSection Incidence: Primary Labor: N/A Elective: Elective CSection Incision: Lower Uterine Transverse CSection Incision: Lower Uterine Transverse Uterine Closure: Double-layer closure BABY A INFORMATION Delivery Date/Time: 06/07/2020 08:38 Method of Delivery: Nurse Controlled Delivery: No Born in Route : No : N/A Forceps: N/A Vacuum Extraction: N/A Shoulder Dystocia : No PRESENTATION/POSITION BABY A Presentation: Breech Cephalic Presentation: N/A Breech Presentation: Double [place] PLACENTA INFORMATION BABY A Placenta Delivery Time : 06/07/2020 08:40 Placenta Method of Delivery: Manual Removal Placenta Status: Delivered SCORES BABY A Heart Rate 1 min: >100 bpm Resp Effort 1 min: Good Cry Reflex Irritability 1 min: Cough or Sneeze or Pulls Away Muscle Tone 1 min: Active Motion Color 1 min: Blue/Pale Resuscitation Effort 1 min: N/A SCORE 1 MIN: 8 Heart Rate 5 min: >100 bpm Resp Effort 5 min: Good Cry Reflex Irritability 5 min: Cough or Sneeze or Pulls Away Muscle Tone 5 min: Active Motion Color 5 min: Body [place], Extremities Blue Resuscitation Effort 5 min: N/A SCORE 5 MIN: 9 INFORMATION BABY A Gestational Age at Delivery: 39.1 Gestational Status: Full Term- 39- 40.6 Weeks Infant Outcome : Liveborn Infant Condition : Stable Sex: Male IDENTIFICATION BABY A Infant Verification Date/Time: 06/07/2020 08:44 ID Band Number: [id number] Mother's Name Verified: Yes RN Verifying Infant: Ekaterina Zee, RN Additional Verifying Personnel: Noemy Osborn, RN WEIGHT/LENGTH BABY A Infant Birthweight (gm): 3352 Infant Weight (lb): 7 Infant Weight (oz): 6 Length (in): 19.50 Length (cm): 49.53 CORD INFORMATION BABY A No. Cord Vessels: 3 Nuchal Cord : N/A Cord Blood Taken: Yes-For Eval (Mom's Blood Type - or O+) Infant Suction: None ASSESSMENT BABY A Infant Complications: None Physical Findings at Delivery: Within Normal Limits Infant Respirations: Appears Normal Skin to Skin: Yes Transferred To: [facility] BABY B INFORMATION : N/A SIGNATURES Signature: with User ID: [email or web address] : with User ID: [email or web address]
== END 2020-06-09 13:20 | disposition home or self-care (01) | DRG 788 ==
LOC: 2S 02:06
PROVIDERS: ADMIT Obstetrics & Gynecology; ATTEND Obstetrics & Gynecology
PROC: 10D00Z1 Extraction of Products of Conception, Low, Open Approach (ICD-10-PCS; principal; 2020-06-07)
DX: O32.8XX0 Maternal care for other malpresentation of fetus, not applicable or unspecified (principal); Z88.8 Allergy status to other drugs, medicaments and biological substances; Z3A.39 39 weeks gestation of pregnancy; Z37.0 Single live birth
CPT/HCPCS: 1961; 36415; 59025; 80307; 81001; 85025; 85027; 86850; 86900; 86901; 87635; 94799; C9803; J0131; J1100; J1170; J1885; J2250; J2300; J2370; J2405; J2550; J2590; J3010; J3490; J7120